=== PATIENT | female | born 1970 | race Caucasian/White ===

== ENCOUNTER → 2016-10-24 | Outpatient (CLI) | payer OTHER ==
--- NOTE | 2016-10-25 09:07 | MAMMOGRAPHY REPORT ---
BILATERAL DIGITAL SCREENING MAMMOGRAM TOMOSYNTHESIS WITH CAD: 10/24/2016 CLINICAL HISTORY: Routine screening. Patient has no complaints. TECHNIQUE: Breast tomosynthesis in addition to standard 2D mammography was performed. Current study was also evaluated with a Computer Aided Detection (CAD) system. COMPARISON: Comparison is made to exams dated: 10/20/2015 mammogram, 10/21/2014 ultrasound, 10/21/2014 mammogram, 10/18/2014 mammogram, and 07/15/2013 mammogram - [facility]. BREAST COMPOSITION: There are scattered areas of fibroglandular density in both breasts. FINDINGS: No suspicious masses, calcifications, or areas of architectural distortion are noted in ei ther breast. There has been no significant interval change compared to prior exams. Bilateral asymme tries are stable. IMPRESSION: ACR BI-RADS CATEGORY 2: BENIGN There is no mammographic evidence of malignancy. A 1 year screening mammogram is recommended. The pa tient will receive written notification of the results. Approximately 10% of breast cancers are not detected with mammography. A negative mammographic report should not delay biopsy if a clinically suggestive mass is present. Wanda Lane M.D. /:10/24/2016 16:46:30 Emergency Vehicle Driver: Abbi ADRIAN(Karla)(M), [facility] letter sent: Normal 1/2 BI-RADS Code: ACR BI-RADS Category 2: Benign
== END | disposition home or self-care (01) ==
LOC: C.MAMM 07:41
PROVIDERS: ATTEND Obstetrics & Gynecology
DX: Z12.31 Encounter for screening mammogram for malignant neoplasm of breast (principal)

== ENCOUNTER → 2016-10-24 | Outpatient (CLI) | payer OTHER | END | disposition home or self-care (01) | LOC: C.PAPS 11:28 | PROVIDERS: ATTEND Physician Assistant | DX: Z12.4 Encounter for screening for malignant neoplasm of cervix (principal) ==

== ENCOUNTER → 2017-07-18 | Outpatient (CLI) | payer OTHER ==
--- NOTE | 2017-07-19 06:01 | PAP/PSG TECHNICIAN REPORT ---
[facility] Toll Bridge Operator Polysomnogram Report Study name: None Report date: 07/19/2017 Study date: 07/18/2017 Referring Physician: Dr. Sylwia Her M.D. Name: MARIVEL FRIEDMAN Interpreting Physician: Sergio Bradford M.D. Date of : 1970 Toll Bridge Operator: KIP Mcintosh. Sex: Female Age: 46 StudyType: PSG PAP Weight: 296 lbs Height: 46 years, Height 5' 6.5" Neck Circum:16.5inches BMI: 47.05 Medications: Prozac 20mg Patient History Study started on room air with 4cwp CPAP in room #6. 46 yr old female here tonight for a new titration study. She had a HST that had an AVEL of 19 and also suggested hypoxemia. Her ESS=10/24. Neck circ=16.5inches. Parameters Monitored NPSG: E1-M2, E2-M1, Fp1-M2, Fp2-M1, F3-M2, F4-M2, F4-M1, C3-M2, C4-M2, C4-M1, O1-M2, O2-M2, O2-M1, T3-M2, T4-M1, P3-M2, P4-M1, CHIN1, CHIN2, HR, EKG, Legs, PFLOW, SNOR, FLOW, CFLOW, Tidal Volume, THOR, ABDO, SpO2, PLTH, CPRESS, ETCO2 Wave, ETCO2, pH Sleep Architecture Sleep Stages Time at Lights Off 10:54:24 PM STAGES Time (min.) TST (%) Time at Lights On 5:45:24 AM Wake 70.5 -- Total Recording Time (TRT) 411.00 min. N1 24.0 7 Total Sleep Period (TSP) 389.0 min. N2 163.0 48 Total Sleep Time (TST) 340.5min. N3 62.5 18 Awake Time 70.5 min. REM 91.0 27 Wake after Sleep Onset 48.5 min. Sleep Efficiency (SE) 83 % Sleep Onset Latency (THOMAS) 22.0 min. Number of Stage 1 Shifts None Awakenings 9 Stage Changes 58 Number of REM periods 7 REM 91.0 27 REM Latency 105.0 min. NREM 249.5 73 Body Position Analysis Supine Right Left Side Prone Vertical Total Sleep Time (min.) 209.5 100.0 64.8 164.76 0.0 0.0 Total Sleep Time (%) 52% 29% 19% 48 0% N/A% Total Sleep Time REM (min.) 64.0 0.0 27.0 None 0.0 0.0 Total Sleep Time NREM (min.) 111.7 100.0 37.8 None 0.0 0.0 Intermittent Wake (min.) 33.8 33.1 3.6 None 0.0 0.0 Total Sleep Period (%) 50% None None None None None Arousals Myoclonus (PLM) * Events Count Index Events Count Index Spontaneous 16 3 Events Awake (PLMW) 52 44.3 Respiratory 7 1.4 Events Asleep w/ Arousal (PLMA) 0 0.0 PLM 0 0 Events Asleep w/o Arousal (PLMS) 25 4.4 Snoring 9 2 Total Asleep 25 4.4 Total 31 5 Total 77 11 Respiratory Analysis * CA OA MA CH H RERA Total Count 3 3 1 0 19 0 27 Index 0.5 0.5 0.2 0 3.3 0 4.8 Mean Duration 14.1 11.1 11.2 10.41 12.9 0.0 12.7 Longest Duration 17.2 12.8 11.2 10.41 11.2 0.0 17.2 Respiratory Event Summary Total Supine ~Supine Right Left Prone REM NREM Apneas Count 7 5 2 0 2 N/A 2 5 Index 1.2 2 1 0.0 1.9 N/A 1 1 Hypopneas (4% Desat) Count 19 19 0 0 0 N/A 5 14 Index 3.3 6.5 0 0.0 0.0 N/A 3.3 3.4 Apneas & All Hypopneas Count 27 25 2 0 2 N/A 7 20 Index 4.8 9 1 0 2 N/A 4.6 4.8 Respiratory Events ([employer] Coach+All Hyp+RERA) Count 27 25 2 0 2 N/A 7 20 Index 4.8 9 1 0.0 1.9 N/A 4.6 4.8 Respiratory Related Arousal Count 7 25 1 0 1 N/A 1 7 Index 1.4 2 0 0 1 N/A 1 2 Snoring Analysis Supine Right Left Prone REM NREM Total Snore duration 2.3 min Snores count 97 8 4 N/A 7 102 109 Snore mean duration 1.2 Sec Snores index 33 5 4 N/A 4.6 24.5 19.2 TST with snoring (%) 0.7% Desaturation Event Summary: Minimum %SpO2 Event Count Mean/Min/Max Duration(sec.) Desaturation Index % Time In Bed > 90 55 17.1 / 5.5 / 46.8 9.2 87.1 86 - 90 10 18.0 / 5.0 / 36.3 11.3 12.9 81 - 85 0 N/A 0.0 0.0 76 - 80 0 N/A 0.0 0.0 71 - 75 0 N/A 0.0 0.0 66 - 70 0 N/A 0.0 0.0 61 - 65 0 N/A 0.0 0.0 56 - 60 0 N/A 0.0 0.0 51 - 55 0 N/A 0.0 0.0 < 50 0 N/A 0.0 0.0 Total REM NREM Awake <50% 0.0 min. 0.0 min. 0.0 min. 0.0 min. 51 - 60% 0.0 min. 0.0 min. 0.0 min. 0.0 min. 61 - 70% 0.0 min. 0.0 min. 0.0 min. 0.0 min. 71 - 80% 0.0 min. 0.0 min. 0.0 min. 0.0 min. 81 - 90% 53.1 min. 12.4 min. 38.9 min. 1.9 min. 91 - 100% 357.7 min. 78.6 min. 210.7 min. 68.4 min. Average 92 92 91 94 Minimum SpO2 85 85 87 86 Desaturation Event Index 8.2 9.2 6.7 12.8 # Desat. Events below 89% 21 10 7 4 Time(%) with Saturation below 89% 0.9 0.6 0.2 0.1 Time(min.) with Saturation below 89% 3.7 2.4 0.9 0.3 Time (mins) REM (mins) NREM (mins) % of TST SpO2 Below 90% 39 14 N25 3.1 SpO2 Below 88% 6 0 0 0 Heart Rate Analysis Min (bpm) Max (bpm) Average (bpm) Awake 64 96 75 NREM 67 99 77 REM 68 89 77 Overall 67 99 77 Supplemental O2 Values Minimum O2 level: None Value Start Time End Time Toll Bridge Operator Comments Mrs. Friedman slept in the right, left and supine positions. No cardiac arrhythmia or PLM's noted. No bruxism noted. CPAP was initiated at +4 CMH2O and up-titrated to a level of +9 CMH2O. A small Mirage FX nasal mask by [employer] was used during titration. She did not use the restroom during the night. She stated that she slept better than she had expected. The final report will be interpreted and signed by a sleep physician. The completed physician report will then be placed in the patient medical record. Therapy Event: Therapy (cm H20) 4 5 6 7 8 9 Total Time at Pressure (min.) 30.2 141.6 108.7 47.2 13.8 69.6 TST at Pressure (min.) 8.2 137.6 67.2 46.2 13.8 67.6 # Periods 1 1 1 1 1 1 Sleep Onset (min.) 22.0 0.0 0.0 0.0 0.0 0.0 REM Onset (min.) N/A 96.8 39.7 N/A N/A 4.1 Sleep Efficiency % 27 97 61 97 100 97 Wakefulness (%) 72.8 2.8 38.2 2.1 0.0 2.9 Wakefulness (min.) 22.0 4.0 41.5 1.0 0.0 2.0 NREM 1 (%) 13.2 3.2 3.2 7.5 10.9 10.1 NREM 1 (min.) 4.0 4.5 3.5 3.5 1.5 7.0 NREM 2 (%) 13.9 37.1 33.8 90.4 89.1 21.0 NREM 2 (min.) 4.2 52.6 36.7 42.6 12.3 14.6 NREM 3 (%) 0.0 44.1 0.0 0.0 0.0 0.0 NREM 3 (min.) 0.0 62.5 0.0 0.0 0.0 0.0 REM (%) 0.0 12.7 24.8 0.0 0.0 66.1 REM (min.) 0.0 18.0 27.0 0.0 0.0 46.0 # Arousals 2 8 9 1 4 7 Arousal Index 14.6 3.5 8.0 1.3 17.4 6.2 # Snore 6 82 4 1 8 8 Snore Index 43.9 35.8 3.6 1.3 34.8 7.1 AHI 0.0 1.7 6.3 11.7 13.1 3.6 AHI Supine N/A 5.2 123.3 11.7 13.1 3.6 AHI Non-Supine 0.0 0.0 1.9 N/A N/A N/A NREM AHI 0.0 0.5 7.5 11.7 13.1 5.6 REM AHI N/A 10.0 4.4 N/A N/A 2.6 RDI 0.0 1.7 6.3 11.7 13.1 3.6 # Obstructive 0 0 0 3 0 0 # Central Ap 0 0 2 1 0 0 # Mixed 0 0 0 1 0 0 # Hypopneas 0 4 5 4 3 3 RERAS 0 0 0 0 0 0 Total Respiratory Events 0 4 7 9 3 4 Time Below SpO2 89.00% (min.) 0.0 2.3 0.2 0.3 0.5 0.1 Mean NREM SpO2 (%) 92 91 92 91 90 91 Mean REM SpO2 (%) N/A 90 93 N/A N/A 92 Mean Sleep SpO2 (%) 92 91 93 91 90 92 Min NREM SpO2 (%) 89 88 88 88 87 89 Min REM SpO2 (%) N/A 85 86 N/A N/A 88 Position Supine (min.) 0.0 45.8 2.4 46.2 13.8 67.6 Position Non-supine (min.) 8.2 91.8 64.8 0.0 0.0 0.0 LM Index Sleep 7.3 5.2 4.5 1.3 8.7 3.6 LM Index NREM 7.3 5.5 0.0 1.3 8.7 2.8 LM Index REM N/A 3.3 11.1 N/A N/A 3.9 Mean Heart Rate (bpm) 77 78 75 79 78 76 Min Heart Rate (bpm) 67 69 67 67 70 68
--- NOTE | 2017-07-22 11:44 | POLYSOMNOGRAPH REPORT ---
CLINICAL DATA: A 46-year-old female with a BMI of [address] Sylwia Her for a CPAP titration study. She had a home sleep apnea test which showed moderate sleep apnea with an AVEL of 19 and nocturnal hypoxemia. SLEEP ARCHITECTURE: Total sleep period was 389 minutes. Total sleep time was 340.5 minutes divided between 249.5 minutes of non-REM sleep and 91 minutes of REM sleep. Sleep onset latency was 22 minutes. REM latency was 105 minutes. Sleep efficiency was 82%. Wake after sleep onset was 48.5 minutes. Sleep consisted of stage N1 7%, stage N2 48%, stage N3 18%, and REM 27%. AROUSAL DATA: Thirty one arousals were recorded for an index of 5 per hour. PERIODIC LIMB MOVEMENT DATA: Twenty five limb movements during sleep were noted for an index of 4.4 per hour with no arousals. RESPIRATORY DATA: The AHI was 4.8. There were 3 central, 3 obstructive and 1 mixed apneic episode. The longest duration of apnea was 17.2 seconds. There were 19 hypopneic episodes with a mean duration of 12.9 seconds. OXIMETRY DATA: Mild nocturnal hypoxemia was seen. Oxygen cornelia was 85% during REM. Mean saturation was 92%. Time below 88% was 6 minutes. ECHOCARDIOGRAM: Heart rates ranged from 67-99 beats per minute. No arrhythmias were noted. CIRCULATION MANAGER'S COMMENTS AND TREATMENT SUMMARY: The patient slept in the right, left, and supine position. She used a small Mirage FX nasal mask by [employer] [place]. She was titrated up to 9 cm of water pressure. At her final pressure setting, she slept for 67.6 minutes with an AHI of 3.6. IMPRESSION: Moderate sleep apnea/hypopnea corrected with CPAP 9 cm water pressure Mirage FX nasal mask, small size by [employer]. RECOMMENDATIONS: The patient should be started on the above noted treatment regimen and seen back in followup within 90 days to document efficacy and compliance. [facility]
== END | disposition home or self-care (01) ==
LOC: C.NEUR 21:00
PROVIDERS: ATTEND Internal Medicine
DX: G47.33 Obstructive sleep apnea (adult) (pediatric) (principal)